=== PATIENT | male | born 1955 ===

== ENCOUNTER 2016-09-05 04:29 | Emergency (ER) | payer MEDICAID, OTHER ==
[2016-09-05 04:29] VITALS: BMI 19.8
[2016-09-05 04:47] VITALS: BP 142/86; PULSE 61; RESP 17; TEMP 98; O2SAT 100
--- NOTE | 2016-09-05 04:50 | ED PDOC ---
HPI: Eye Injury/Pain Time Seen by Provider: 09/05/16 04:49 Chief Complaint (Nursing): Eye Problem Chief Complaint (Provider): Eye pain History Per: Patient Additional Complaint(s): Pt is a 61 yo male, PMH of DM, HTN, HIV, and High cholesterol, presents to ED with no physical complaints at this time. Asking for medication refill. Pt reports that he often gets dental abscesses and while he has no pain at this time, he "feels one coming on." Pt requesting RX for Tramadol and PCN VK. Also, Pt requesting albuterol inhaler RX. 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 Past Medical History Reviewed: Historical Data, Nursing Documentation, Vital Signs Vital Signs: Last Vital Signs Temp 98.0 F 09/05/16 04:44 Pulse 61 09/05/16 04:44 Resp 17 09/05/16 04:44 BP 142/86 09/05/16 04:44 Pulse Ox 100 09/05/16 04:44 - Medical History PMH: Asthma, Back Problems, COPD, Diabetes (type II), GERD, HIV (undetectable viral load), HTN, Hypercholesterolemia, Chronic Pain (neck/back) Denies: Chronic Kidney Disease - Surgical History Surgical History: Appendectomy, Hernia Repair (abdominal) - Family History Family History: States: Unknown Family Hx - Immunization History Hx Tetanus Toxoid Vaccination: No Hx Influenza Vaccination: Yes Hx Pneumococcal Vaccination: Yes - Home Medications Home Medications: Ambulatory Orders Medication Instructions Recorded Atazanavir [Reyataz] 300 mg PO DAILY #0 cap 12/31/15 Emtricitabine/Tenofovir Diso 1 tab PO DAILY #0 tab 12/31/15 [Truvada 200 MG-300 MG] Ritonavir [Norvir] 100 mg PO DAILY #0 tab 12/31/15 metFORMIN [glucOPHAGE] 500 mg PO DAILY 03/18/16 ALPRAZolam [Xanax] 0.25 mg PO TID #15 tab 07/04/16 hydrOXYzine HCl [Atarax] 25 mg PO Q6H #30 tab 07/04/16 oxyCODONE/Acetaminophen [Percocet 1 tab PO QID PRN #20 tab 07/04/16 5/325 mg Tab] Albuterol HFA [Ventolin HFA 90 2 puff IH Q4H PRN #2 puff 07/15/16 mcg/actuation (8 g)] Albuterol HFA [Ventolin HFA 90 2 puff IH [id number] PRN #1 puff 09/05/16 mcg/actuation (8 g)] Penicillin VK [Pen-Vee K] 500 mg PO BID #14 tab 09/05/16 traMADol [Ultram] 50 mg PO TID #5 tab 09/05/16 - Allergies Allergies/Adverse Reactions: Allergies Allergy/AdvReac Type Severity Reaction Status Date / Time No Known Allergies Allergy Verified 07/04/16 18:23 Review of Systems ROS Statement: Except As Marked, All Systems Reviewed And Found Negative ENT: Positive for: Other (dental pain) Physical Exam - Reviewed Nursing Documentation Reviewed: Yes Vital Signs Reviewed: Yes - Physical Exam Appears: Positive for: Well, Non-toxic, No Acute Distress Head Exam: Positive for: ATRAUMATIC, NORMAL INSPECTION, NORMOCEPHALIC Skin: Positive for: Normal Color, Warm, DRY Eye Exam: Positive for: EOMI, Normal appearance, PERRL ENT: Positive for: Normal ENT Inspection, Other (no erythema or edema noted to gumline) Neck: Positive for: Normal, Painless ROM Cardiovascular/Chest: Positive for: Regular Rate, Rhythm Respiratory: Positive for: CNT, Normal Breath Sounds Gastrointestinal/Abdominal: Positive for: Normal Exam, Bowel Sounds, Soft Back: Positive for: Normal Inspection Extremity: Positive for: Normal ROM Neurologic/Psych: Positive for: Alert, Oriented - ECG O2 Sat by Pulse Oximetry: 100 Medical Decision Making Medical Decision Making: Pt given RX for PCN VK to use as needed if dental pain worsens, given RX for Tramadol as well to use as needed for pain. Pt also requesting refill of albuterol Disposition - Clinical Impression Clinical Impression: Medication refill - Patient ED Disposition Is Patient to be Admitted: No - Disposition Disposition: Routine/Home Disposition Time: 05:00 Condition: STABLE Prescriptions: Albuterol HFA [Ventolin HFA 90 mcg/actuation (8 g)] 2 puff IH [id number] PRN #1 puff PRN Reason: Shortness Of Breath Penicillin VK [Pen-Vee K] 500 mg PO BID #14 tab traMADol [Ultram] 50 mg PO TID #5 tab Instructions: Medicine Refill (ED) Print Language: LAO - POA Present On Arrival: None
== END 2016-09-05 06:04 | disposition home or self-care (01) ==
LOC: H.ER 04:29
DX: J45.909 Unspecified asthma, uncomplicated (principal); Z76.0 Encounter for issue of repeat prescription; E11.9 Type 2 diabetes mellitus without complications; I10 Essential (primary) hypertension

== ENCOUNTER 2016-10-12 00:15 | Emergency (ER) | payer MEDICAID, OTHER, SELFPAY ==
[2016-10-12 00:16] VITALS: BMI 19.8
[2016-10-12 00:42] VITALS: BP 136/74; PULSE 84; RESP 18; TEMP 98.7; O2SAT 98
--- NOTE | 2016-10-12 01:35 | ED PDOC ---
HPI: General Adult Time Seen by Provider: 10/12/16 00:44 Chief Complaint (Nursing): Abnormal Skin Integrity Chief Complaint (Provider): head injury History Per: Patient History/Exam Limitations: no limitations Onset/Duration Of Symptoms: Sudden Onset Have you had recent travel within the past 21 days to any of the following countries: [place], [place], [place] or [place]?: No Current Symptoms Are (Timing): Still Present Additional Complaint(s): 61yo male presents to the ED for evaluation of head injury. Patient states earlier today he was going down steps and felt dizzy, subsequently falling backwards striking the back of his head on the stairs. Reports losing consciousness, but uncertain how long. Denies neck pain, chest pain, previous TBI, anticoagulant use, n/v. Against Medical Advice - AMA Patient Left Against Medical Advice: The patient declines admission to the hospital and wishes to leave the Emergency Department. This action is against my medical advice. This decision was made with informed refusal. The patient was told that admission to the hospital is necessary. Explanation of the reasons why were discussed. The risks of leaving were explained to the patient and include, but are not limited to, worsening of known or currently unknown conditions, permanent disability and from undiagnosed or untreated conditions. The patient has the capacity to make this informed decision and understands my explanation of the current medical problem and risks of leaving. The patient voluntarily accepts these risks and signed an AMA form documenting our conversation. The patient was given the opportunity to ask questions and reconsider. The patient was encouraged to return to the Emergency Department at any time for further care. Past Medical History Reviewed: Historical Data, Nursing Documentation, Vital Signs Vital Signs: Last Vital Signs Temp 98.7 F 10/12/16 00:35 Pulse 84 10/12/16 00:35 Resp 18 10/12/16 00:35 BP 136/74 10/12/16 00:35 Pulse Ox 98 10/12/16 01:42 - Medical History PMH: Asthma, Back Problems, COPD, Diabetes (type II), GERD, HIV (undetectable viral load), HTN, Hypercholesterolemia, Chronic Pain (neck/back) Denies: Chronic Kidney Disease - Surgical History Surgical History: Appendectomy, Hernia Repair (abdominal) - Family History Family History: States: No Known Family Hx - Immunization History Hx Tetanus Toxoid Vaccination: No Hx Influenza Vaccination: Yes Hx Pneumococcal Vaccination: Yes - Home Medications Home Medications: Ambulatory Orders Medication Instructions Recorded Atazanavir [Reyataz] 300 mg PO DAILY #0 cap 12/31/15 Emtricitabine/Tenofovir Diso 1 tab PO DAILY #0 tab 12/31/15 [Truvada 200 MG-300 MG] Ritonavir [Norvir] 100 mg PO DAILY #0 tab 12/31/15 metFORMIN [glucOPHAGE] 500 mg PO DAILY 03/18/16 ALPRAZolam [Xanax] 0.25 mg PO TID #15 tab 07/04/16 hydrOXYzine HCl [Atarax] 25 mg PO Q6H #30 tab 07/04/16 oxyCODONE/Acetaminophen [Percocet 1 tab PO QID PRN #20 tab 07/04/16 5/325 mg Tab] Albuterol HFA [Ventolin HFA 90 2 puff IH Q4H PRN #2 puff 07/15/16 mcg/actuation (8 g)] Albuterol HFA [Ventolin HFA 90 2 puff IH [id number] PRN #1 puff 09/05/16 mcg/actuation (8 g)] Penicillin VK [Pen-Vee K] 500 mg PO BID #14 tab 09/05/16 traMADol [Ultram] 50 mg PO TID #5 tab 09/05/16 oxyCODONE/Acetaminophen [Percocet 1 tab PO QID PRN #20 tab 09/21/16 5/325 mg Tab] - Allergies Allergies/Adverse Reactions: Allergies Allergy/AdvReac Type Severity Reaction Status Date / Time No Known Allergies Allergy Verified 09/20/16 22:51 Review of Systems ROS Statement: Except As Marked, All Systems Reviewed And Found Negative Cardiovascular: Negative for: Chest Pain Gastrointestinal: Negative for: Nausea, Vomiting Musculoskeletal: Positive for: Other (head injury ). Negative for: Neck Pain Neurological: Positive for: Dizziness, Other ((+) LOC ) Physical Exam - Reviewed Nursing Documentation Reviewed: Yes Vital Signs Reviewed: Yes - Physical Exam Appears: Positive for: Well, No Acute Distress Head Exam: Negative for: ATRAUMATIC (2cm jagged laceration to occipital scalp, no active bleeding) Skin: Positive for: Normal Color, Warm, Dry Eye Exam: Positive for: Normal appearance, EOMI, PERRL ENT: Positive for: Normal ENT Inspection Neck: Positive for: Normal, Painless ROM, Supple Cardiovascular/Chest: Positive for: Regular Rate, Rhythm. Negative for: Murmur , Tachycardia Respiratory: Positive for: Normal Breath Sounds. Negative for: Wheezing, Respiratory Distress Gastrointestinal/Abdominal: Positive for: Normal Exam, Bowel Sounds, Soft. Negative for: Tenderness Back: Positive for: Normal Inspection. Negative for: L CVA Tenderness, R CVA Tenderness, Vertebral Tenderness (no cervical tenderness ) Extremity: Positive for: Normal ROM, Tenderness (right lateral shoulder tenderness, no deformity ). Negative for: Deformity Neurologic/Psych: Positive for: Alert, Oriented - Laboratory Results Result Diagrams: 10/12/16 01:42 10/12/16 01:42 - ECG O2 Sat by Pulse Oximetry: 98 Pulse Ox Interpretation: Normal (RA) Medical Decision Making Medical Decision Makin: Impression: head injury w/ (+) LOC and laceration sustained Plan: CT c-spine and head EKG Labs Tylenol 975mg PO XR right shoulder reassess Scribe Attestation: Documented by Storm Swift acting as a scribe for Pedro Luis Garrett PA-C. Provider Scribe Attestation: All medical record entries made by the Scribe were at my direction and personally dictated by me. I have reviewed the chart and agree that the record accurately reflects my personal performance of the history, physical exam, medical decision making, and the department course for this patient. I have also personally directed, reviewed, and agree with the discharge instructions and disposition. Procedures - Time-Out Type of Procedure: Scalp laceration Site of Procedure: scalp Correct Patient (with visual ID + MR# on ID Band): Yes Correct Procedure: Yes Correct Site Marked: Yes PA/Tech: Tami - Laceration/Wound Repair scalp laceration Wound Length (cm): 3 Wound's Depth, Shape: superficial Irrigated w/ Saline (ccs): 400 Betadine Prep?: Yes Anesthesia: 1% Lidocaine Volume Anesthetic (ccs): 4 Wound Repaired With: Stuart (7) Wound Complexity: Simple Disposition - Clinical Impression Clinical Impression: Head injury, Scalp laceration, Dizziness - Patient ED Disposition Is Patient to be Admitted: No - Disposition Disposition: Against Medical Advice Disposition Time: 03:11 Condition: STABLE Additional Instructions: Staple removal in 5-7 days. Instructions: Head Injury (ED), Staple Care (ED), Dizziness (ED) Print Language: MONGOLIAN
[2016-10-12 01:55] LABS: BASO # 0.1 K/uL (0.0-0.2); EOS # 0.1 K/uL (0.0-0.7); EOS % 1.2 % (0.0-4.0); HEMATOCRIT 42.6 % (35.0-51.0); LYMPH % 18.4 % (20.0-40.0); MEAN CELL VOLUME 89.9 fl (80.0-94.0); MEAN CORPUSCULAR HEMOGLOBIN 30.1 pg (27.0-31.0); MEAN CORPUSCULAR HGB CONC 33.5 g/dL (33.0-37.0); MEAN PLATELET VOLUME 8.9 fl (7.2-11.7); MONO # 0.5 K/uL (0.0-0.8); MONO % 9.1 % (0.0-10.0); NEUT # 3.9 K/uL (1.8-7.0); NEUT % 70.3 % (50.0-75.0); NRBC % 0.1 % (0.0-0.0); RED CELL DISTRIBUTION WIDTH 13.8 % (11.5-14.5); WHITE BLOOD COUNT 5.6 K/uL (4.8-10.8)
[2016-10-12 02:07] LABS: ALB/GLOB RATIO 1.1 (1.0-2.1); ALKALINE PHOSPHATASE 84 U/L (38-126); ALT/SGPT 28 U/L (21-72); AST/SGOT 37 U/L (17-59); BILIRUBIN,TOTAL 0.9 mg/dl (0.2-1.3); BLOOD UREA NITROGEN 24 mg/dl (9-20); CALCIUM 9.5 mg/dL (8.4-10.2); CARBON DIOXIDE 26 mmol/L (22-30); CHLORIDE 102 mmol/L (98-107); GFR AFRICAN-AMERICAN > 60; GLUCOSE,RANDOM 101 mg/dL (75-110); POTASSIUM 4.7 MMOL/L (3.6-5.0); SODIUM 144 mmol/l (132-148); TOTAL PROTEIN 8.4 G/DL (6.3-8.2)
--- NOTE | 2016-10-12 02:24 | CT ---
EXAM: CT Head Without Intravenous Contrast CLINICAL HISTORY: 61 years old, male; Injury or trauma; Fall; Initial encounter; Blunt trauma (contusions or hematomas) TECHNIQUE: Axial computed tomography images of the head/brain without intravenous contrast. This CT exam was performed using one or more of the following dose reduction techniques: automated exposure control, adjustment of the mA and/or kV according to patient size, and/or use of iterative reconstruction technique. COMPARISON: CT - HEAD W/O CONTRAST 01/11/2016 5:26:11 PM FINDINGS: Brain: Minimal atrophy. No intracranial hemorrhage. No mass. Few scattered foci of decreased attenuation within periventricular/subcortical white matter. No edema. Ventricles: No hydrocephalus. Bones/joints: No acute fracture. Soft tissues: Parietal soft tissue irregularity/swelling/air. Few punctate radiopaque foreign bodies along soft tissue irregularity. Vasculature: Mild atherosclerotic disease of intracranial arteries. Sinuses: Scattered minimal mucosal thickening. Mastoid air cells: No mastoid effusion. Orbits: Unremarkable as visualized. IMPRESSION: 1. No intracranial hemorrhage. 2. Nonspecific white matter changes. 3. Incidental/non-acute findings are described above.
--- NOTE | 2016-10-12 02:27 | CT ---
EXAM: CT Cervical Spine Without Intravenous Contrast CLINICAL HISTORY: 61 years old, male; Injury or trauma; Fall; Initial encounter; Blunt trauma TECHNIQUE: Axial computed tomography images of the cervical spine without intravenous contrast. This CT exam was performed using one or more of the following dose reduction techniques: automated exposure control, adjustment of the mA and/or kV according to patient size, and/or use of iterative reconstruction technique. Coronal and sagittal reformatted images were created and reviewed. COMPARISON: No relevant prior studies available. FINDINGS: Vertebrae: No acute fracture. Degenerative retrolithesis of C5 on C6. Discs/spinal canal/neural foramina: [id number] degenerative disc disease at C5-C6 level. Disc herniation at C5-C6 level, suboptimally evaluated. Mild indentation thecal sac/cord at C5-C6 level. Neuroforaminal narrowing at C5-C6 level. Soft tissues: Unremarkable. Vasculature: Mild atherosclerotic disease. Lung apices: Bullous changes and probable scarring. IMPRESSION: 1. No fracture. 2. Probable apical scarring. Suggest followup to ensure stability. 3. Incidental/non-acute findings are described above.
[2016-10-12] MEDS ORDERED: Lidocaine/Epi 1% 1:100000 20 ML IJ ONE (02:38)
[2016-10-12] MEDS ORDERED: Lidocaine 1% Inj (20ml) IJ ONE (02:39)
--- NOTE | 2016-10-12 07:32 | CARD ---
APPROVED REPORT EKG Measurement Heart [id number] <Conclusion> Sinus rhythm with occasional premature ventricular complexes Low voltage QRS Borderline ECG
--- NOTE | 2016-10-12 10:39 | RAD ---
PROCEDURE: Radiographs of the Right Shoulder HISTORY: trauma COMPARISON: Chest x-ray performed 12/31/15. FINDINGS: BONES: No acute displaced fracture. The distal clavicle and underlying ribs appear intact. JOINTS: No acute dislocation. SOFT TISSUES: Soft tissues appear unremarkable. No evidence of radiopaque foreign body. IMPRESSION: No acute displaced fracture or dislocation evident. If symptoms persist or if there is continued clinical concern, x-ray follow-up in 7-10 days should be considered.
== END 2016-10-12 03:48 | disposition left against medical advice (07) ==
LOC: H.ER 00:15
DX: S09.90XA Unspecified injury of head, initial encounter (principal); S01.01XA Laceration without foreign body of scalp, initial encounter; W10.9XXA Fall (on) (from) unspecified stairs and steps, initial encounter; Y92.89 Other specified places as the place of occurrence of the external cause; R42 Dizziness and giddiness; E11.9 Type 2 diabetes mellitus without complications; E78.00 Pure hypercholesterolemia, unspecified; I10 Essential (primary) hypertension; I49.3 Ventricular premature depolarization; J44.9 Chronic obstructive pulmonary disease, unspecified; J45.909 Unspecified asthma, uncomplicated; K21.9 Gastro-esophageal reflux disease without esophagitis; Z79.84 Long term (current) use of oral hypoglycemic drugs; G89.29 Other chronic pain

== ENCOUNTER 2017-10-27 16:42 | Emergency (ER) | payer SELFPAY ==
[2017-10-27 16:42] VITALS: BMI 19.8
--- NOTE | 2017-10-27 17:43 | ED PDOC ---
HPI: General Adult Time Seen by Provider: 10/27/17 16:50 Chief Complaint (Nursing): Chest Pain Chief Complaint (Provider): Chest Pain History Per: Patient History/Exam Limitations: no limitations Onset/Duration Of Symptoms: Days (x 1) Current Symptoms Are (Timing): Still Present Additional Complaint(s): 62 year old male with a history of HIV, Hep C, HTN, COPD, chronic headache disorder and chronic back pain presents to the ED complaining of chest, abdominal and back pain as well as a headache, starting yesterday. He also complains of shortness of breath. Patient says he develops stomach pain after he eats and that his chest pain is worse at night. His back pain is localized to his lower back. He denies fever and cough. PMD: Dr. Tereso Perales MD Past Medical History Reviewed: Historical Data, Nursing Documentation, Vital Signs Vital Signs: Last Vital Signs Temp 98.0 F 10/28/17 03:09 Pulse 65 10/28/17 03:09 Resp 18 10/28/17 03:09 BP 116/63 10/28/17 03:09 Pulse Ox 99 10/28/17 05:42 - Medical History PMH: Asthma, Back Problems, COPD, Diabetes (type II), GERD, HIV (undetectable viral load), HTN, Hypercholesterolemia, Chronic Pain (neck/back) Denies: Chronic Kidney Disease - Surgical History Surgical History: Appendectomy, Hernia Repair (abdominal) - Family History Family History: States: Unknown Family Hx - Social History Current smoker - smoking cessation education provided: Yes Alcohol: None Drugs: Denies - Immunization History Hx Tetanus Toxoid Vaccination: No Hx Influenza Vaccination: Yes Hx Pneumococcal Vaccination: Yes - Home Medications Home Medications: Ambulatory Orders Medication Instructions Recorded Emtricitabine/Tenofovir Diso 1 tab PO DAILY #0 tab 12/31/15 [Truvada 200 MG-300 MG] Ritonavir [Norvir] 100 mg PO DAILY #0 tab 12/31/15 metFORMIN [glucOPHAGE] 500 mg PO DAILY 03/18/16 ALPRAZolam [Xanax] 0.25 mg PO TID #15 tab 07/04/16 Albuterol HFA [Ventolin HFA 90 2 puff IH Q4H PRN #2 puff 07/15/16 mcg/actuation (8 g)] traMADol [Ultram] 50 mg PO TID PRN #10 tab 10/14/16 Fluticasone/Salmeterol 500/50 1 dsk IH BID #100 puff 11/03/16 [Advair Diskus] - Allergies Allergies/Adverse Reactions: Allergies Allergy/AdvReac Type Severity Reaction Status Date / Time No Known Allergies Allergy Verified 11/03/16 13:48 Review of Systems ROS Statement: Except As Marked, All Systems Reviewed And Found Negative Respiratory: Positive for: Shortness of Breath Musculoskeletal: Positive for: Back Pain Neurological: Positive for: Headache Physical Exam - Reviewed Nursing Documentation Reviewed: Yes Vital Signs Reviewed: Yes - Physical Exam Appears: Positive for: Non-toxic, No Acute Distress Head Exam: Positive for: ATRAUMATIC, NORMAL INSPECTION, NORMOCEPHALIC Skin: Positive for: Normal Color, Warm, Dry Eye Exam: Positive for: EOMI, Normal appearance, PERRL Neck: Positive for: Normal, Painless ROM, Supple Cardiovascular/Chest: Positive for: Regular Rate, Rhythm. Negative for: Murmur Respiratory: Positive for: Normal Breath Sounds. Negative for: Respiratory Distress Gastrointestinal/Abdominal: Positive for: Normal Exam, Soft. Negative for: Tenderness Extremity: Positive for: Normal ROM. Negative for: Deformity, Swelling Neurologic/Psych: Positive for: Alert, Oriented. Negative for: Motor/Sensory Deficits - Laboratory Results Result Diagrams: 10/27/17 18:00 10/27/17 18:00 - ECG O2 Sat by Pulse Oximetry: 99 (RA) Pulse Ox Interpretation: Normal Medical Decision Making Medical Decision Making: Time: 17:36 Initial Plan: body pain, chest pain, rule out cardiac etiology, electrolyte abnormality or infection --CMP --CBC with differentials --Troponin I --Chest x-ray --Tylenol 650 mg PO EKG normal sinus. labs unremarkable. will check a second troponin level in 4 hours to ensure not a cardiac etiology. on reevaluation pt comfortable, in no distress. requesting to eat and drink ---- Scribe Attestation: Documented by Rhonda Tuttle, acting as a scribe for Aishwarya Staples MD Provider Scribe Attestation: All medical record entries made by the Scribe were at my direction and personally dictated by me. I have reviewed the chart and agree that the record accurately reflects my personal performance of the history, physical exam, medical decision making, and the department course for this patient. I have also personally directed, reviewed, and agree with the discharge instructions and disposition. Disposition - Clinical Impression Clinical Impression: Atypical chest pain - Patient ED Disposition Is Patient to be Admitted: Transfer of Care Counseled Patient/Family Regarding: Studies Performed, Diagnosis - Disposition Referrals: Tereso Perales MD [Family Provider] - Disposition: Transfer of Care Disposition Time: 18:45 Condition: STABLE Instructions: Chest Pain That Is Not Caused by the Heart (DC) Forms: [facility] (Persian) Print Language: OCCITAN Patient Signed Over To: Bandar Etienne Handoff Comments: repeat troponin levels
[2017-10-27 18:14] LABS: BASO % 0.3 % (0.0-2.0); EOS % 0.2 % (0.0-4.0); HEMOGLOBIN 13.4 g/dL (12.0-18.0); LYMPH # 0.9 K/uL (1.0-4.3); LYMPH % 10.5 % (20.0-40.0); MEAN CELL VOLUME 90.6 fl (80.0-94.0); MEAN CORPUSCULAR HEMOGLOBIN 30.5 pg (27.0-31.0); MEAN CORPUSCULAR HGB CONC 33.7 g/dL (33.0-37.0); MEAN PLATELET VOLUME 7.8 fl (7.2-11.7); MONO # 0.8 K/uL (0.0-0.8); RBC 4.4 Mil/uL (4.40-5.90); RED CELL DISTRIBUTION WIDTH 13.7 % (11.5-14.5); WHITE BLOOD COUNT 8.8 K/uL (4.8-10.8)
[2017-10-27 18:15] LABS: ALB/GLOB RATIO 1.2 (1.0-2.1); ALBUMIN 4.1 g/dL (3.5-5.0); ALT/SGPT 66 U/L (21-72); AST/SGOT 60 U/L (17-59); BLOOD UREA NITROGEN 21 mg/dl (9-20); CALCIUM 9.6 mg/dL (8.4-10.2); GFR AFRICAN-AMERICAN > 60; GFR NON-AFRICAN AMERICAN > 60
--- NOTE | 2017-10-27 21:00 | ED PDOC ---
- Laboratory Results Result Diagrams: 10/27/17 18:00 10/27/17 18:00 - ECG O2 Sat by Pulse Oximetry: 99 (RA) Pulse Ox Interpretation: Normal Medical Decision Making Medical Decision Making: Time: 19:00 --transfer of care endorsed to me pending repeat Troponin levels. 0300 Repeat troponin level: 0.0130 Initial troponin level: 0.0160 Upon re-evaluation patient is well appearing, comfortable, and no longer complains of pain. Patient is stable for discharge home and agrees to follow up with PCP in 1-2 days. Return precautions discussed in detail with patient. Scribe Attestation: Documented by Danielle Hough acting as a scribe for Bandar Etienne MD. Scribe Attestation: All medical record entries made by the Scribe were at my direction and personally dictated by me. I have reviewed the chart and agree that the record accurately reflects my personal performance of the history, physical exam, medical decision making, and the department course for this patient. I have also personally directed, reviewed, and agree with the discharge instructions and disposition. Disposition - Clinical Impression Clinical Impression: Atypical chest pain - POA Present On Arrival: None - Disposition Referrals: Tereso Perales MD [Family Provider] - Disposition: Routine/Home Disposition Time: 03:00 Condition: STABLE Instructions: Chest Pain That Is Not Caused by the Heart (DC) Forms: [facility] (Gibraltarian) Print Language: [place] ISLANDER
[2017-10-28 00:16] VITALS: RESP 18
[2017-10-28 03:11] VITALS: BP 116/63; PULSE 65; TEMP 98
[2017-10-28 05:43] VITALS: O2SAT 99
--- NOTE | 2017-10-28 08:56 | RAD ---
HISTORY: chest pain COMPARISON: Chest radiograph dated 12/31/2015. TECHNIQUE: Chest PA and lateral FINDINGS: LUNGS: Right greater than left biapical scarring. No focal consolidation. PLEURA: No significant pleural effusion identified. No pneumothorax apparent. CARDIOVASCULAR: Atherosclerotic aortic calcifications. Cardiomediastinal silhouette within normal limits. OSSEOUS STRUCTURES: Unchanged. VISUALIZED UPPER ABDOMEN: Normal. OTHER FINDINGS: None. IMPRESSION: No active disease.
== END 2017-10-28 03:10 | disposition home or self-care (01) ==
LOC: H.ER 16:42
DX: R07.89 Other chest pain (principal); B19.20 Unspecified viral hepatitis C without hepatic coma; E11.9 Type 2 diabetes mellitus without complications; E78.00 Pure hypercholesterolemia, unspecified; I10 Essential (primary) hypertension; K21.9 Gastro-esophageal reflux disease without esophagitis; Z21 Asymptomatic human immunodeficiency virus [HIV] infection status; Z79.84 Long term (current) use of oral hypoglycemic drugs; G89.29 Other chronic pain; F17.200 Nicotine dependence, unspecified, uncomplicated; J44.9 Chronic obstructive pulmonary disease, unspecified